=== PATIENT | male | born 1985 | race Caucasian/White ===

== ENCOUNTER 2017-08-02 14:26 | Emergency (ER) | payer BC ==
[2017-08-02] MEDS ORDERED: ACETAMINOPHEN 325 MG TABLET PO ONE (16:41)
--- NOTE | 2017-08-02 16:42 | ERNOTE ---
Date of Service: 08/02/17 Time Seen by Provider: 08/02/17 16:33 Stated Complaint: FLU Presenting Symptoms:: cough, sore throat Source: patient, family, RN notes reviewed Exam Limitations: no limitations Immunizations: IMMUNIZATION HX Immunizations Up to Date Yes History of Influenza Vaccine No Allergies/Adverse Reactions: Allergies cefaclor [From Ceclor] Adverse Reaction (Verified 08/02/17 14:53) Hives Home Medications: HOME MEDICATIONS NK [No Home Medication] 08/02/17 [Last Taken Unknown] - History of Present Ilness Narrative: 32 year old male presents to the ED with a cough, headache, and generalized weakness and malaise that began 2 days ago. He denies any sick contacts. He is here visiting from out of town. He has not been taking anything for his symptoms. Date (Duration): 07/31/17 Frequency/Possible Cause: Reports: unknown cause Prior Treatment: Denies: recently seen, currently on antibiotics Review of Systems - Review of Systems Constitutional: Present: chills, fatigue, malaise EYE: Absent: eye pain, eye discharge ENT: Absent: ear pain, nose congestion, nasal drainage, sore throat Respiratory: Present: cough. Absent: shortness of breath, wheezing Cardiology: Absent: chest pain, palpitations, syncope Gastrointestinal/Abdominal: Present: eating less, drinking less. Absent: nausea , vomiting, diarrhea, abdominal pain Genitourinary: Present: no symptoms reported Musculoskeletal: Present: muscle pain, joint pain. Absent: muscle stiffness, joint swelling Skin: Absent: rash, lesions Neurological: Present: headache. Absent: dizziness/light-headedness Endocrine: Present: no symptoms reported Hematologic/Lymphatic: Present: no symptoms reported Psych: Present: no symptoms reported - Patient's Past Medical History Patient History - Medical: No pertinent hx Patient History - Cardiac/Respiratory: No pertinent hx Patient History - Cancer: No Hx of Cancer Patient History - Surgical Procedures: Other - Social History Living Situations: home Smoking Status: Never smoker Alcohol Use: rarely Drug Use: none - Immunizations Immunizations Up to Date: Yes History of Influenza Vaccine: No Physical Exam - Physical Exam General Appearance: Present: wd/wn, alert, no apparent distress Head Exam: Present: normal inspection Eye Exam: Normal inspection: bilateral Ears, Nose, Throat: Present: normal ENT inspection, normal pharynx Neck: Present: normal inspection, nontender, supple Respiratory: Present: no respiratory distress, normal breath sounds, no accessory muscle use, lungs clear Cardiovascular/Chest: Present: regular rate, rhythm, no murmur, normal peripheral pulses Extremity Exam: Present: normal inspection, normal range of motion, no edema Neurological Exam: Present: alert, oriented, normal mood/affect, no motor/ sensory deficits Skin Exam: Present: normal color, warm/dry ED Progress - Results and Orders Patient's Lab Results:: I have reviewed the patient's lab results. - Vital Signs Patient's Vital Signs:: I have reviewed the patient's vital signs. Vital Signs: Vital Signs 08/02/17 08/02/17 08/02/17 14:50 16:11 16:35 Temperature 37.5 C Pulse Rate 82 88 91 Respiratory 14 16 14 Rate Blood Pressure 117/74 119/70 133/79 O2 Sat by Pulse 98 100 99 Oximetry - Progress/Reassessment Chief Complaint: General Assessment Progress:: Improved Departure Clinical Impression: Flu-like symptoms - Departure Disposition: Home self-care Condition: Stable Instructions: Influenza, Adult, [id number] Additional Instructions: Tylenol and/or ibuprofen for pain/fever Rest Push fluids Follow up for new/worsening symptoms
[2017-08-02] MEDS ORDERED: ACETAMINOPHEN 325 MG TABLET ONE (16:47)
[2017-08-02 17:15] VITALS: BP 123/79
== END 2017-08-02 17:43 | disposition home or self-care (01) ==
LOC: ER 14:26
DX: R68.89 Other general symptoms and signs (principal)